=== PATIENT | female | born 1935 | race Caucasian/White ===

== ENCOUNTER 2018-01-25 02:04 | Emergency (ER) | payer OTHER ==
[~2018-01-25] VITALS: Ht 152.4 cm; Wt 73.9 kg
--- NOTE | ~2018-01-25 | EKG ---
[place], [place] ELECTROCARDIOGRAM REPORT NAME: OSEI GOMES UNIT #: [id number] ROOM: DOCTOR: EPIPHANY DRAFT REPORT BIRTHDATE: [birth year] [facility] Test Date: 2018-01-25 Test Time: 02:27:38 Pat Name: OSEI GOMES Department: ER Room: 4 Gender: F Supervisor [employer]: HONORIO : 1935 Requested By: FELY TITUS Order Number: [id number] Reading MD: Edgardo Jim MD Measurements Intervals [place] Rate: 71 P: 27 NC: 190 QRS: -30 QRSD: 94 T: 40 QT: 404 QTc: 439 Interpretive Statements Sinus rhythm Inferior infarct, old Electronically Signed On 01-25-2018 9:44:17 PDT by Edgardo Jim MD CM:EKGRPT:ELECTROCARDIOGRAM REPORT [id number] FELY TITUS MD EPIPHANY DRAFT REPORT FELY TITUS MD
[2018-01-25 02:18] VITALS: BP 135/72
[2018-01-25 02:42] LABS: BASO % 0.5 % (0.0-1.0); EOS # 0.1 10*3/uL (0.0-0.4); EOS % 1.1 % (1.0-4.0); HEMATOCRIT 39.4 % (37.0-47.0); HEMOGLOBIN 13.3 g/dl (12.0-16.0); LYMPH # 1.3 10*3/uL (1.3-4.4); LYMPH % 17.9 % (27.0-41.0); MEAN CELL VOLUME 91.2 fl (81.0-99.0); MEAN CORPUSCULAR HGB 30.8 pg (27.0-31.0); MEAN CORPUSCULAR HGB CONC 33.8 g/dl (33.0-37.0); MEAN PLATELET VOLUME 9.6 fl (9.6-12.3); MONO # 0.5 10*3/uL (0.1-1.0); MONO % 7.2 % (3.0-9.0); NEUT # 5.4 10*3/uL (2.3-7.9); NEUT % 73.2 % (47.0-73.0); PLATELET COUNT AUTOMATED 261 10*3/uL (130-400); RED BLOOD COUNT 4.32 10*6/uL (4.10-5.10); RED CELL DISTRI WIDTH 13.4 % (0-14.5); WHITE BLOOD COUNT 7.3 10*3/uL (4.8-10.8)
[2018-01-25 02:58] LABS: ALBUMIN 4.1 gm/dl (3.1-4.5); ALKALINE PHOSPHATASE 77 U/L (45-117); BUN 15 mg/dl (7-24); CHLORIDE 101 mmol/L (98-107); CPK 163 U/L (26-192); CREATININE 0.89 mg/dL (0.55-1.02); LIPASE 79 U/L (73-393); POTASSIUM 3.7 mmol/L (3.5-5.1); SGOT/AST 24 IU/L (3-35); SGPT/ALT 22 U/L (12-78); SODIUM 138 mmol/L (136-145); TOTAL PROTEIN 7.4 gm/dL (6.4-8.2)
[2018-01-25 03:00] LABS: CKMB 5.3 ng/ml (0.5-3.6); TROPONIN I < 0.015 ng/ml (<0.045)
[2018-01-25 05:36] LABS: BILIRUBIN NEGATIVE (NEGATIVE); BLOOD NEGATIVE (NEGATIVE); CLARITY CLEAR (CLEAR); COLOR YELLOW (YELLOW); GLUCOSE NEGATIVE (NEGATIVE); KETONE NEGATIVE (NEGATIVE); LEUKO ESTERASE NEGATIVE (NEGATIVE); NITRITE NEGATIVE (NEGATIVE); PH 7.5 (5.0-9.0); SPECIFIC GRAVITY <= 1.005 (1.005-1.030); UROBILINOGEN 0.2 E.U./dl (0.2-1.0)
[2018-01-25 05:51] LABS: EPITHELIAL CELLS 0-5; WBC 0-2 wbc/hpf (0-5)
[2018-01-25 05:57] VITALS: BP 132/67
[2018-01-25 08:00] VITALS: BP 139/76
== END 2018-01-25 08:35 | disposition short-term general hospital (02) ==
LOC: ED 02:04 → EDHOLD 04:48 → ED 04:48 → 4E 05:21 → EDHOLD 05:21 → ED 08:35
PROVIDERS: Emergency Medicine
DX: K56.609 Unspecified intestinal obstruction, unspecified as to partial versus complete obstruction (principal)